=== PATIENT | male | born 1985 | race Caucasian/White ===

== ENCOUNTER 2024-04-29 10:19 | Emergency (ER) | payer MEDICAID ==
[~2024-04-29] VITALS: Ht 185.4 cm; Wt 90.7 kg
[2024-04-29] MEDS ORDERED: ONDANSETRON HCL/PF 4 MG/2 ML VIAL ONE (10:44)
[2024-04-29] MEDS ORDERED: FAMOTIDINE/PF INJ 20 MG/2 ML VIAL IV ONE (10:45)
[2024-04-29] MEDS: ONDANSETRON HCL/PF 4 MG/2 ML VIAL IVP ONE (11:00)
[2024-04-29] MEDS: FAMOTIDINE/PF INJ 20 MG/2 ML VIAL IV ONE (11:05)
[2024-04-29] MEDS: IV NS 0.9% 1,000 ML BAG IV ONE (11:10)
[2024-04-29 11:12] LABS: BASOPHILS % (AUTO) 0.6 % (0.0-2.0); EOSINOPHILS # (AUTO) 0.1 K/uL (0.0-0.7); EOSINOPHILS % (AUTO) 1.9 % (0.0-6.0); HEMATOCRIT 40 % (39-51); HEMOGLOBIN 13.4 g/dL (13.5-17.5); LYMPHOCYTES # (AUTO) 0.9 K/uL (0.8-4.8); LYMPHOCYTES % (AUTO) 15.1 % (20.0-44.0); MEAN CORPUSCULAR HEMOGLOBIN 28 PG (26.0-33.0); MEAN CORPUSCULAR HGB CONC 33 g/dl (31.0-36.0); MEAN CORPUSCULAR VOLUME 84 fL (80-96); MONOCYTES # (AUTO) 0.9 K/uL (0.1-1.30); MONOCYTES % (AUTO) 14.8 % (2.0-12.0); NEUTROPHILS % (AUTO) 67.6 % (43.0-81.0); PLATELET COUNT (AUTO) 188 K/uL (150-450); RED BLOOD CELL COUNT(AUTO) 4.77 MIL/uL (4.5-6.0); RED CELL DISTRIBUTION WIDTH 14.1 % (11.5-15.0); WHITE BLOOD COUNT (AUTO) 5.9 K/uL (4.3-11.0)
[2024-04-29 11:18] LABS: CALCIUM, SERUM 9.4 mg/dL (8.5-10.1); CREATININE 0.9 mg/dL (0.6-1.3); POTASSIUM 3.6 mmol/L (3.5-5.1)
[2024-04-29 11:24] LABS: ALBUMIN 3.6 g/dL (3.4-5.0); BILIRUBIN,DIRECT 0.2 mg/dL (0.0-0.2); BILIRUBIN,TOTAL 0.9 mg/dL (0.2-1.0); TOTAL PROTEIN, SERUM 6.5 g/dL (6.4-8.2)
[2024-04-29] MEDS ORDERED: FAMO20TA8 PO (11:48)
[2024-04-29] MEDS ORDERED: MAG HYDROX/AL HYDROX/SIMETH 30 ML UDC ONE (12:08)
[2024-04-29] MEDS: MAG HYDROX/AL HYDROX/SIMETH 30 ML UDC PO ONE (12:14)
[2024-04-29 12:17] VITALS: BP 128/76; TEMP 98.5; O2SAT 97
== END 2024-04-29 12:17 | disposition home or self-care (01) ==
LOC: ER 10:26
DX: K21.9 Gastro-esophageal reflux disease without esophagitis (principal)
CPT/HCPCS: 99284; 96374; 96361; 96375; 85025; 80048; 83690; 80076; 36415; J3490; J2405; J7030; A4223